=== PATIENT | male | born 1940 | race African-American/Black ===

== ENCOUNTER 2016-03-26 03:25 | Inpatient (IN) | payer MEDICARE ==
[~2016-03-26] VITALS: Ht 179.1 cm; Wt 72.6 kg
[~2016-03-26 03:25] MED LIST: ABILIFY2 MG PO; DEPAKOTE ER500 MG PO; FLORANEX / LACT1 TAB PO; LEXAPRO10 MG PO; LEXAPRO20 MG PO; MILK OF MAGNESI30 ML PO; MIRALAX17 GM PO; NEOSPORIN OINTM15 GM TP; NORVASC5 MG PO; OXYBUTYNIN CHLOR5 MG PO; PROTONIX40 MG PO; TRIPLE ANTIBI28.4 GM TP; VITAMIN B-121000 MC3 PO; VITAMIN D2000 UNIT PO; VITAMIN D5000 UNIT PO; VITAMIN D50000 UNIT PO; [UNRECOGNIZED DRUG - CODE] IM
[2016-03-26 07:06] LABS: BASOPHILS 0.4 % (0.0-2.0); EOSINOPHILS 0.2 % (0-7); HEMOGLOBIN 18.7 g/dL (13.5-17.5); IMMATURE GRANULOCYTES 0.3 % (0-5); LYMPHOCYTES 11.9 % (15-50); MCH 33.3 pg (26.0-34.0); MCV 97.9 fL (80.0-100.0); MEAN PLATELET VOLUME 10.6 fL (7.4-10.4); MONOCYTES 9.7 % (2-11); NEUTROPHILS 77.5 % (40-80); RBC 5.62 10x6/uL (4.20-6.10); RDW 14.8 % (11.5-14.5); WBC 14.1 10x3/uL (4.8-10.8)
[2016-03-26 07:43] LABS: PLATELET COUNT 188 10x3/uL (130-400)
[2016-03-26 08:01] LABS: ANION GAP 21.7 mmol/L (8-16); BILIRUBIN - TOTAL 0.79 mg/dL (0.2-1.3); CALCIUM 10.2 mg/dL (8.5-10.1); CARBON DIOXIDE 22.8 mmol/L (21.0-32.0); CREATININE - SERUM 1.7 mg/dL (0.6-1.3); POTASSIUM - SERUM 4.5 mmol/L (3.5-5.1); PROTEIN - SERUM 9.1 g/dL (6.4-8.2)
[2016-03-26 11:48] LABS: APPEARANCE HAZY (CLEAR); BILIRUBIN NEGATIVE (NEGATIVE); COLOR DK YELLOW (YELLOW); GLUCOSE NEGATIVE (NEGATIVE); KETONE MODERATE mg/dL (NEGATIVE); LEUKOCYTE ESTERASE NEGATIVE (NEGATIVE); NITRITE NEGATIVE (NEGATIVE); PROTEIN 1+ mg/dL (NEGATIVE); RED CELLS - URINE 0-5 /hpf (0-5); SPECIFIC GRAVITY 1.015 (1.005-1.020); UROBILINOGEN NORMAL (NORMAL); WHITE CELLS - URINE OCC /hpf (0-5)
[2016-03-26 11:49] LABS: BACTERIA MODERATE /hpf (NONE SEEN); EPITHELIAL CELLS OCC /hpf (0-5); HYALINE CAST 0-5 /lpf (NONE SEEN); MUCUS <1+ /lpf (NONE SEEN)
--- NOTE | 2016-03-26 14:34 | NUR ---
RECEIVED TO ROOM 2215 FROM ER VIA . ORIENTED TO ROOM AND CALL LIGHT SYSTEM. CALL LIGHT IN REACH. WILL CONTINUE WITH PLAN OF CARE.
[2016-03-26] MEDS ORDERED: CARAFATE1 G PO (14:39)
[2016-03-26 14:42] VITALS: BP 147/105; BMI 22.6
--- NOTE | 2016-03-26 16:27 | NUR ---
IV OF D5 1/2NS INITIATED @ 200 CC/HR. LEVAQUIN IVPB AND PROTONIX SIVP. CALL LIGHT IN REACH.
[2016-03-26 16:37] VITALS: BP 147/05
--- NOTE | 2016-03-26 16:40 | NUR ---
PT LYING IN BED. RATES PAIN 5 ON SCALE OF 0-10. ADMINISTERED DILAUDID SIVP. NO FURTHER NEEDS NOTED. BED IN LOWEST POSITION. SRU X2. PHONE AND CALL LIGHT WITHIN REACH.
[2016-03-26 16:50] LABS: CKMB 2.8 U/L (0.0-3.6); CREATINE KINASE 300 UL (21-232)
[2016-03-26 16:51] LABS: TROPONIN-I 0.071 ng/mL (0.000-0.060)
--- NOTE | 2016-03-26 18:23 | NUR ---
NO CHANGES IN INITIAL ASSESSMENT. CALL LIGHT IN REACH. WILL CONTINUE WITH PLAN OF CARE.
[2016-03-26 21:00] VITALS: BP 131/75
[2016-03-26 21:31] LABS: CKMB 2.4 U/L (0.0-3.6); CREATINE KINASE 329 UL (21-232)
[2016-03-26 21:44] LABS: TROPONIN-I 0.067 ng/mL (0.000-0.060)
[2016-03-27 01:00] VITALS: BP 189/104
--- NOTE | 2016-03-27 03:01 | NUR ---
RESTING AT THIS TIME RESPIRATIONS WITH EASE AND UNLABORED.
[2016-03-27 03:43] LABS: CKMB 2.4 U/L (0.0-3.6); CREATINE KINASE 326 UL (21-232)
[2016-03-27 03:49] LABS: TROPONIN-I 0.079 ng/mL (0.000-0.060)
[2016-03-27 04:53] VITALS: BP 184/93
--- NOTE | 2016-03-27 07:30 | NUR ---
PT LYING ON LEFT SIDE WITH EYES CLOSED AND RESPIRATIONS EVEN AND NON LABORED. BED ALARM ON AND IV TO LEFT HAND PATENT WITH NO S/S OF INFILTRATION PRESENT. CALL LIGHT IN REACH AND DOOR OPEN. WILL CONTINUE WITH PLAN OF CARE.
[2016-03-27 08:08] VITALS: BP 170/87
--- NOTE | 2016-03-27 08:20 | NUR ---
SCHEDULED PROTONIX ADMINISTERED AT THIS TIME. PT ASSISTED TO STANDING POSITION AT BEDSIDE SO THAT HE COULD USE THE URINAL. PT DENIES PAIN AND IS VERY UNSTEADY AND WEAK IN HIS GAIT. PT UNABLE TO EAT BREAKFAST HE DOES NOT HAVE AN APPETITE. DRANK TWO SWALLOWS OF MILK WITH MINIMAL DIFFICULTY. ASSISTED BACK TO BED. PT SELF POSITIONS FOR COMFORT. BED ALARM ON AND SRX2 WITH BED IN LOWEST POSITION AND LOCKED. CALL LIGHT IN REACH AND DOOR OPEN. WILL CONTINUE WITH PLAN OF CARE.
--- NOTE | 2016-03-27 10:17 | NUR ---
Patient Name: ADRIAN WAGGONER Admission Status: ER Accout number: [id number] Admission Date: 03-26-2016 : 1940 Admission Diagnosis: Attending: CARLEEN Current LOS: 1 Anticipated DC Date: Planned Disposition: Primary Insurance: [employer] ADV Discharge Planning Comments: CM MET WITH PATIENT AND HE WANTS HOSPICE AT THIS TIME. HOSPICE CONSULT ORDERED. Buoy Tender: Soraya Cannon
--- NOTE | 2016-03-27 10:17 | NUR ---
Patient Name: ADRIAN WAGGONER Admission Status: ER Accout number: [id number] Admission Date: 03-26-2016 : 1940 Admission Diagnosis: Attending: CARLEEN Current LOS: 1 Anticipated DC Date: Planned Disposition: Primary Insurance: [employer] ADV Discharge Planning Comments: CM MET WITH PATIENT AND HE WANTS HOSPICE AT THIS TIME. HOSPICE CONSULT ORDERED. Alum Mixer: Soraya Cannon
[2016-03-27 10:25] VITALS: Ht 179.1 cm; Wt 72.6 kg
[2016-03-27 12:19] VITALS: BP 157/77
[2016-03-27 12:29] LABS: BASOPHILS 0.3 % (0.0-2.0); EOSINOPHILS 0.4 % (0-7); HEMATOCRIT 49.8 % (42.0-54.0); HEMOGLOBIN 16.6 g/dL (13.5-17.5); IMMATURE GRANULOCYTES 0.3 % (0-5); MCH 33.2 pg (26.0-34.0); MCHC 33.3 g/dL (31.0-37.0); MCV 99.6 fL (80.0-100.0); MEAN PLATELET VOLUME 11.3 fL (7.4-10.4); MONOCYTES 9.4 % (2-11); NEUTROPHILS 76.6 % (40-80); PLATELET COUNT 168 10x3/uL (130-400); RDW 15.3 % (11.5-14.5); WBC 13.1 10x3/uL (4.8-10.8)
--- NOTE | 2016-03-27 12:45 | NUR ---
SCHEDULED ANTIBIOTIC ADMINISTERED AT THIS TIME. PT REMAINS ASLEEP WITH RESPIRATIONS EVEN AND NON LABRORED. CALL LIGHT IN REACH, WILL CONTINUE WITH PLAN OF CARE.
[2016-03-27 13:31] LABS: ALBUMIN 3.3 g/dL (3.4-5.0); ANION GAP 11.6 mmol/L (8-16); BILIRUBIN - TOTAL 0.58 mg/dL (0.2-1.3); CARBON DIOXIDE 28.2 mmol/L (21.0-32.0); CREATININE - SERUM 1.5 mg/dL (0.6-1.3); POTASSIUM - SERUM 3.8 mmol/L (3.5-5.1)
--- NOTE | 2016-03-27 15:00 | NUR ---
MEPILEX HEART DRESSING APPLIED TO PT'S COCCYX AT HIS REQUEST FOR ADDED PADDING AND TO DECREASE THE CHANCE OF BREAKDOWN. PT REFUSES TO EAT. SELF POSITIONS FOR COMFORT.
[2016-03-27 15:45] VITALS: BP 160/90
--- NOTE | 2016-03-27 19:00 | NUR ---
PATIENT SLEEPING ON RIGHT SIDE. HOB 20 DEGREES. AROUSES TO VOICE BUT IS LETHARIC WITH A FLAT AFFECT. RR EVEN AND UNLABORED. STATES PAIN IS AN 8/10. IV TO LEFT HAND PATENT WITH NO REDNESS OR SWELLING. MEPILEX TO COCCYX CDI. PATIENT STATES THAT THERE IS NOT AN OPEN SORE BUT HE REQUESTED THE DRESSING TO PREVENT ONE. BA ON. SRX2. BED LOW. CALL LIGHT WITHIN REACH.
[2016-03-27 21:00] VITALS: BP 160/93
--- NOTE | 2016-03-27 22:50 | NUR ---
DILAUDID GIVEN FOR PAIN AND AMBIEN GIVEN FOR SLEEP PER ORDER. WILL REASSESS.
[2016-03-28 01:00] VITALS: BP 142/95
--- NOTE | 2016-03-28 02:00 | NUR ---
PATIENT SLEEPING WITH NO DISTRESS NOTED. CALL LIGHT WITHIN REACH.
[2016-03-28 04:24] VITALS: BP 158/87
--- NOTE | 2016-03-28 05:30 | NUR ---
PATIENT SITTING UP ON SIDE OF BED DRINKING WATER. STATES THAT HE "HAD A GOOD NIGHTS SLEEP."
--- NOTE | 2016-03-28 07:31 | NUR ---
DR CRESCENCIO GRIFFITH AT THIS TIME. NOTIFIFED HIM OF PT'S BLOOD PRESSURE 162/102. NEW ORDERS GIVEN FOR AMLODIPINE. SCHEDULED MEDICATIONS ADMININSTERED AT THIS TIME WELL PRN DILAUDID FOR PAIN 8/10 IN LEFT HIP. PT ASSISTED BACK TO BED IN A LYING POSITION. PT SELF POSITIONS FOR COMFORT. ASSESSMENT PERFORMED PER FLOWSHEET. IV TO LEFT HAND PATENT WITH NO S/S OF INFILTRATION PRESENT. CALL LIGHT IN REACH, BED ALARM ON. WILL CONTINUE WITH PLAN OF CARE. DOOR OPEN, SRX2 AND BED IN LOWEST POSITION AND LOCKED.
[2016-03-28 08:22] VITALS: BP 163/102
--- NOTE | 2016-03-28 10:15 | NUR ---
RESTING AT THIS TIME WITH NO S/S OF DISTRESS PRESENT. EYES CLOSED AND RESPIRATIONS EVEN AND NON LABORED. CALL LIGHT IN REACH, DOOR OPEN. WILL CONTINUE WITH PLAN OF CARE.
[2016-03-28 11:43] LABS: BASOPHILS 0.5 % (0.0-2.0); EOSINOPHILS 0.8 % (0-7); HEMATOCRIT 46.7 % (42.0-54.0); HEMOGLOBIN 15.6 g/dL (13.5-17.5); IMMATURE GRANULOCYTES 0.4 % (0-5); LYMPHOCYTES 14.6 % (15-50); MCH 33.1 pg (26.0-34.0); MCHC 33.4 g/dL (31.0-37.0); MCV 99.2 fL (80.0-100.0); MEAN PLATELET VOLUME 11.1 fL (7.4-10.4); MONOCYTES 9.8 % (2-11); NEUTROPHILS 73.9 % (40-80); PLATELET COUNT 136 10x3/uL (130-400); RBC 4.71 10x6/uL (4.20-6.10); RDW 14.4 % (11.5-14.5)
[2016-03-28 12:02] LABS: ALBUMIN 3.2 g/dL (3.4-5.0); BILIRUBIN - TOTAL 0.68 mg/dL (0.2-1.3); CALCIUM 8.9 mg/dL (8.5-10.1); CREATININE - SERUM 1.4 mg/dL (0.6-1.3); POTASSIUM - SERUM 3.7 mmol/L (3.5-5.1); PROTEIN - SERUM 7.2 g/dL (6.4-8.2)
[2016-03-28 12:07] LABS: ANION GAP 12.7 mmol/L (8-16)
[2016-03-28 12:31] VITALS: BP 170/107
--- NOTE | 2016-03-28 13:00 | NUR ---
ASSISTED PT TO STAND SO HE COULD VOID AT THIS TIME. PT VOIDED 100 ML OF TEA COLORED URINE AT THIS TIME. ASSISTED BACK TO BED. BED ALARM ON AND CALL LIGHT IN REACH.
--- NOTE | 2016-03-28 16:12 | NUR ---
LYING ON RIGHT SIDE AT THIS TIME. EYES CLOSED WITH RESPIRATIONS EVEN AND NON LABORED. CALL LIGHT IN REACH, WILL CONTINUE WITH PLAN OF CARE.
--- NOTE | 2016-03-28 16:53 | NUR ---
Patient Name: ADRIAN WAGGONER Admission Status: ER Accout number: [id number] Admission Date: 03-26-2016 : 1940 Admission Diagnosis:PAIN, UNSPECIFIED Attending: CARLEEN Current LOS: 2 Anticipated DC Date: Planned Disposition: Primary Insurance: [employer] ADV Discharge Planning Comments: CM MET WITH PATIENT REGARDING D/C NEEDS AND PLANS. PATIENT WAS NOT APPROPRIATE FOR HOSPICE. PATIENT LIVES ALONE HIS EX- BROUGHT HIM IN TO ER. PATIENT LIVES IN A HIGHRISE WITH AN ELEVATOR. PATIENT STATES HE IS INDEPENDENT WITH HIS CARE AND HAS A CANE. PATIENTS PCP IS DR. PRATHER AND PHARMACY IS [facility]. PATIENT HAD [facility] IN THE PAST. PATIENT WANTS TO GO TO THE [facility]. A ANTWON HAS BEEN SENT AND REFERRAL WILL BE MADE IN AM. CM WILL CONTINUE TO FOLLOW PATIENT WITH D/C NEEDS AND PLANS. PCP DR. [facility]- [phone] LILIANA VELEZ (EX ) [phone] Sports Information Director: Soraya Cannon Is the patient Alert and Oriented? Yes 0 * How many steps to enter\exit or inside your home? ELEVATOR 0 * PCP DR. PRATHER 0 * Pharmacy [facility] 0 * Preadmission Environment Home Alone 0 * ADLs Independent 0 * List name and contact numbers for known caregivers / representatives who currently or will assist patient after discharge: LILIANA ([phone]) EX 0 * Community resources currently utilized None 0 * Additional services required to return to the preadmission environment? Yes 0 * Can the patient safely return to the preadmission environment? No 0 * Has this patient been hospitalized within the prior 30 days at any hospital? No 0 Grand Total: 0
--- NOTE | 2016-03-28 19:00 | NUR ---
PATIENT RESTING IN BED WITH EYES CLOSED. AROUSES TO VOICE. RR EVEN AND UNLABORED. 0 S/S OF DISTRESS. STATES PAIN IS A 3/10. IV TO RIGHT HAND PATENT WITH NO REDNESS OR SWELLING. B/A ON. SRX2. BED LOW. CALL LIGHT WITHIN REACH.
[2016-03-28 20:00] VITALS: BP 127/69
--- NOTE | 2016-03-28 20:02 | NUR ---
20G IV SITED TO PT'S RIGHT HAND X2 ATTEMPTS. 22G IV TO LEFT HAND D/C WITH CATH TIP INTACT D/T LEAKING AROUND INSERTION SITE.
--- NOTE | 2016-03-28 21:30 | NUR ---
DILAUDID GIVEN FOR PAIN AND AMBIEN GIVEN FOR SLEEP.
[2016-03-29] VITALS: BP 149/77
--- NOTE | 2016-03-29 01:35 | NUR ---
DILAUDID GIVEN FOR PAIN.
[2016-03-29 04:00] VITALS: BP 147/84
--- NOTE | 2016-03-29 07:45 | NUR ---
NON-SKID SOCKS PLACED ON PATIENT. FALL BAND ALREADY ON AND YELLOW STAR IS ALREADY ON DOOR.
[2016-03-29 08:19] VITALS: BP 156/92
--- NOTE | 2016-03-29 09:45 | NUR ---
ASSESSMENT COMPLETED. DENIES NEEDS AT THIS TIME. CALL LIGHT IN REACH. WILL CONTINUE WITH PLAN OF CARE.
--- NOTE | 2016-03-29 10:16 | NUR ---
AM MEDS ADMINISTERED AND SCDs APPLIED TO BLE.
--- NOTE | 2016-03-29 10:21 | NUR ---
IV TUBING CHANGED AND PASSWORD OBTAINED.
--- NOTE | 2016-03-29 11:50 | NUR ---
DILAUDID 2 MG SIVP PER C/O LEFT HIP PAIN OF 10/. BED ALARM ON. CALL LIGHT IN REACH
[2016-03-29 12:42] VITALS: BP 151/91
--- NOTE | 2016-03-29 12:42 | NUR ---
NUTRITION MONITORING & EVAL CHART REVIEWED, PT VISIT. TOLERATING REG DIET BUT PO INTAKE POOR AT THIS TIME. WILL CONTINUE TO PROVIDE DIET, MONITOR PT PROGRESS. RD FOLLOWING
--- NOTE | 2016-03-29 13:05 | NUR ---
NO NEEDS VOICED AT THIS TIME. CALL LIGHT IN REACH. BED ALARM ON.
--- NOTE | 2016-03-29 14:21 | NUR ---
LEVAQUIN 500 MG IVPB PER ORDER. CALL LIGHT IN REACH.
[2016-03-29 16:03] VITALS: BP 155/87
--- NOTE | 2016-03-29 16:44 | NUR ---
RESTING WITH EYES CLOSED. RESP EVEN AND UNLABORED. CALL LIGHT IN REACH. BED ALARM ON.
--- NOTE | 2016-03-29 18:15 | NUR ---
NO CHANGES IN INITIAL ASSESSMENT. BED ALARM ON. SCDs TO BLE. CALL LIGHT IN REACH. WILL CONTINUE WITH PLAN OF CARE.
--- NOTE | 2016-03-29 19:05 | NUR ---
OUTPUT WAS ONLY 125 CC FOR THE SHIFT. NOTIFIED DR. PRATHER. STATES HE WILL PUT IN NEW ORDERS.
[2016-03-29 20:00] VITALS: BP 158/79
--- NOTE | 2016-03-29 20:00 | NUR ---
ASSESSMENT PER FLOWSHEET. IV PATENT RT.ARM OF D51/2NS AT 50CC'S/HR. BED ALARM ON SCD'S OFF AT THIS TIME.SR UP X2 CALL LIGHT WITHIN REACH BED ALARM BED ON.
--- NOTE | 2016-03-29 21:00 | NUR ---
MEDS GIVEN PER MAR.
[2016-03-30] VITALS (7 sets, daily range): BP systolic 128–160; BP diastolic 63–78
--- NOTE | 2016-03-30 | NUR ---
UP WITH HELP AND USE OF WALKER FOR BM. PASSED GAS NO STOOL NOTED. RICHMOND CATHETER INSERTED 16FR ORDERED.
--- NOTE | 2016-03-30 03:00 | NUR ---
UP TO BR WITH HELP NO STOOL NOTED. PASSING GAS ONLY.
--- NOTE | 2016-03-30 05:56 | NUR ---
NO CHANGES IN ASSESSMENT.
[2016-03-30 11:49] LABS: BASOPHILS 0.2 % (0.0-2.0); EOSINOPHILS 1.5 % (0-7); HEMATOCRIT 40.6 % (42.0-54.0); HEMOGLOBIN 13.5 g/dL (13.5-17.5); IMMATURE GRANULOCYTES 0.5 % (0-5); MCH 32.2 pg (26.0-34.0); MCHC 33.3 g/dL (31.0-37.0); MCV 96.9 fL (80.0-100.0); MEAN PLATELET VOLUME 10.7 fL (7.4-10.4); MONOCYTES 9.4 % (2-11); NEUTROPHILS 68.4 % (40-80); RBC 4.19 10x6/uL (4.20-6.10); RDW 13.9 % (11.5-14.5); WBC 8.8 10x3/uL (4.8-10.8)
[2016-03-30 11:50] LABS: PLATELET COUNT 101 10x3/uL (130-400)
[2016-03-30 11:59] LABS: ALBUMIN 2.6 g/dL (3.4-5.0); ANION GAP 7.8 mmol/L (8-16); BILIRUBIN - TOTAL 0.57 mg/dL (0.2-1.3); CALCIUM 8.5 mg/dL (8.5-10.1); CARBON DIOXIDE 30.1 mmol/L (21.0-32.0); CREATININE - SERUM 1.4 mg/dL (0.6-1.3); PROTEIN - SERUM 5.9 g/dL (6.4-8.2)
[2016-03-30 12:15] LABS: POTASSIUM - SERUM 2.9 mmol/L (3.5-5.1)
--- NOTE | 2016-03-30 20:00 | NUR ---
ASSESSMENT WI FLOWSHEET. IV PATENT RT HAND OF D51/2NS INFUSING AT 50CC'S/HR RICHMOND TO BS DRAINAGE WITH MAICO COLORED URINE. C/O BEING HUNGRY FOOD TRAY GIVEN TO PATIENT. #3 K+ RIDER HUNG ORDERED PER ELECTROLYTE PROTOCAL.
--- NOTE | 2016-03-30 22:00 | NUR ---
MEDS GIVEN PER MAR. #4 K+ RIDER HUNG PER Joel MONTOYA.
--- NOTE | 2016-03-30 22:17 | NUR ---
C/O BACK PAIN RATES PAIN LEVEL #6 DILAUDID IVP GIVEN FOR PAIN RELIEF.
--- NOTE | 2016-03-31 | NUR ---
EYES CLOSED RESPIRATIONS WITH EASE AND UNLABORED.
[2016-03-31 04:00] VITALS: BP 132/60
--- NOTE | 2016-03-31 06:05 | NUR ---
UP IN ROOM AT SINK ORAL CARE AND AM CARE SELF CARE DONE.
[2016-03-31 08:22] VITALS: BP 120/68
[2016-03-31 12:23] VITALS: BP 145/67
--- NOTE | 2016-03-31 15:05 | NUR ---
PATIENT REPORTS TENDERNESS AT IV SITE. D/C IV WITH CATH INTACT. STARTED IV TO RIGHT AC 20G X'S 2 ATTEMPTS.
[2016-03-31 16:38] VITALS: BP 122/59
--- NOTE | 2016-03-31 20:00 | NUR ---
ASSESSMENT PER MARTHA. IV PATENT RT ARM OF D51/2NS AT 50CC'S/HR SITE CLEAR. RICHMOND TO BS DRAINAGE WITH YELLOW URINE. SR UP X2 CALL LIGHT ON.
[2016-03-31 21:00] VITALS: BP 122/71
--- NOTE | 2016-03-31 21:30 | NUR ---
MEDS GIVEN PER MAY.AMBIEN 5 MG PO GIVEN FOR SLEEP.
--- NOTE | 2016-04-01 | NUR ---
EYES CLOSED RESPIRATIONS WITH EASEA ND UNLABORED.
[2016-04-01 02:00] VITALS: BP 121/66
[2016-04-01 06:00] VITALS: BP 130/68
--- NOTE | 2016-04-01 06:59 | NUR ---
NO CHANGES IN ASSESSMENT.
--- NOTE | 2016-04-01 08:08 | NUR ---
AWAKE AND ALERT. ORIENTED X3. C/O LEFT HIP PAIN THIS AM. NOT NEW. WILL MONITOR. LUNGS ARE CLEAR BILATERALLY, NO COUGH NOTED. SKIN IS INTACT WITHOUT REDNESS. IV TO RIGHT FOREARM PATENT WITHOUT REDNESS AT INSERTION SITE. RICHMOND PATENT WITH CLEAR YELLOW URINE. DENIES NEEDS. ASSISTED TO SIT UP ON SIDE OF BED FOR BREAKFAST.
[2016-04-01 08:30] VITALS: BP 147/66
--- NOTE | 2016-04-01 10:30 | NUR ---
REQUESTED AND GIVEN ONE HYDROCODONE PO FOR C/O BACK AND ABDOMENAL PAIN LEVEL 9. WILL MONITOR.
[2016-04-01 12:14] VITALS: BP 142/57
--- NOTE | 2016-04-01 12:30 | NUR ---
LUNCH SERVED IN ROOM. FEEDS SELF. NO C/O AT THIS TIME.
--- NOTE | 2016-04-01 13:30 | NUR ---
RESTING QUIETLY IN BED. DENIES NEEDS. REFUSED LUNCH TRAY. STATED HE ATE ALL HE WANTED.
--- NOTE | 2016-04-01 15:05 | NUR ---
OT NOTE: ATTEMPTED OT EVAL ON THIS DATE, HOWEVER, PT REFUSED. PT REPORTED THAT HE NEEDED TO REST AND COULD NOT GET UP AT THIS TIME. WILL RE ATTEMPT TOMORROW. THANK YOU FOR REFERAL, NOHEMI NEWTON, OTR/L
--- NOTE | 2016-04-01 16:21 | NUR ---
RESTING QUIETLY WITH EYES CLOSED. NO NEEDS NOTED.
[2016-04-01 16:54] VITALS: BP 136/75
--- NOTE | 2016-04-01 19:40 | NUR ---
RECIEVED SHIFT REPORT. PT IS LYING IN BED. ALERT AND ORIENTED AND ABLE TO VERBALIZE NEEDS. IV IS PATENT AND FLUIDS ARE RUNNING PER ORDER. PT IS AMBULATORY BUT WAS INSTUCTED TO CALL FOR ANY ASSISTANCE NEEDED. RICHMOND IS DRAINING URINE BY GRAVITY. PT STATES PAIN IS 9/10. NO NEEDS ARE VERBALIZED AT THIS TIME. WILL CONTINUE TO MONITOR. SIDE RAILS ARE UP X 2. BED IS IN LOWEST POSITION. CALL LIGHT IS WITHIN REACH.
--- NOTE | 2016-04-01 19:41 | NUR ---
ATE ABOUT HALF OF SUPPER TRAY. REQUESTED AND GIVEN DULCOLAX SUPPOSITORY. WILL MONITOR.
[2016-04-01 21:00] VITALS: BP 155/67
--- NOTE | 2016-04-01 21:39 | NUR ---
SHIFT ASSESSMENT COMPLETED. PT C/O PAIN 11/24. ADMINISTERED PRESCRIBED PRN DILAUDID PER ORDER. DENIES FURTHER NEEDS. WILL MONITOR. SIDE RAILS X 2. BED LOW. CALL LIGHT IN REACH.
[2016-04-02 00:21] VITALS: BP 138/70
[2016-04-02 05:00] VITALS: BP 116/63
--- NOTE | 2016-04-02 08:19 | NUR ---
AWAKE AND ALERT. ORIENTED X3. NO C/O AT THIS TIME. LUNGS ARE CLEAR BILATERALLY, NO COUGH NOTED. SKIN IS INTACT WITHOUT REDNESS. IV TO RIGHT AC IS PATENT WITHOUT REDNESS AT INSERTION SITE. SCD'S OFF AT THIS TIME. DENIES NEEDS. RICHMOND PATENT WITH CLEAR YELLOW URINE.
[2016-04-02 08:29] VITALS: BP 139/76
--- NOTE | 2016-04-02 09:45 | NUR ---
REQUESTED AND GIVEN 2MG DILAUDID SLOW IVP FOR C/O BACK AND ABDOMINAL PAIN LEVEL 7. WILL MONITOR.
--- NOTE | 2016-04-02 11:10 | NUR ---
C/O NAUSEA. REQUESTED AND GIVEN 8MG ZOFRAN SLOW IVP FOR SAME. WILL MONITOR.
--- NOTE | 2016-04-02 11:51 | NUR ---
OT NOTE: ATTEMPTED EVAL FOR SECOND TIME THIS AM. PT CONTINUES TO REFUSE. PT REPORTED NO PAIN, JUST REPORTED THAT HE COULD NOT GET UP NOW.."TOO WEAK". WILL ATTEMPT AGAIN LATER. THANK YOU, NOHEMI NEWTON, OTR/L
--- NOTE | 2016-04-02 12:28 | NUR ---
NUTRITION MONITORING & EVAL CHART REVIEWED, PT VISIT. TOLERATING REG DIET, 50% INTAKE RECENT MEALS. RD FOLLOWING
--- NOTE | 2016-04-02 12:30 | NUR ---
SAT UP ON SIDE OF BED AND ATE LUNCH. FEEDS SELF.
[2016-04-02 13:36] VITALS: BP 149/65
[2016-04-02 14:59] VITALS: BP 121/62
--- NOTE | 2016-04-02 19:25 | NUR ---
Patient received in bed resting, kidd catheter in place draining clear dark yellow urine, PIV #20 in right AC infusing D5 1/2 NS @50ml/hr, no signs of infection or infiltration at PIV site. Denies any back or hip pain at this time. Alert and oriented x 4.
[2016-04-02 22:00] VITALS: BP 156/68
--- NOTE | 2016-04-03 00:20 | NUR ---
Sleeping, respirations easy and regular. Has refused to wear SCDs this evening. SCDs off and at sink. IV infusing. Gonzalez catheter draining well.
--- NOTE | 2016-04-03 06:22 | NUR ---
Continues to sleep, no complaints voiced of pain or discomfort.
--- NOTE | 2016-04-03 07:30 | NUR ---
REPORT RECEIVED FROM MARKETING OPERATIONS CONSULTANT NURSE. CALL LIGHT IN REACH.
[2016-04-03 08:24] VITALS: BP 118/62
--- NOTE | 2016-04-03 08:40 | NUR ---
ASSESSMENT COMPLETED. [facility]. CALL LIGHT IN REACH. WILL CONTINUE WITH PLAN OF CARE.
--- NOTE | 2016-04-03 10:00 | NUR ---
NO NEEDS VOICED AT THIS TIME. CALL LIGHT IN REACH.
--- NOTE | 2016-04-03 12:40 | NUR ---
STATES HE IS GOING TO TRY EAT LUNCH TODAY.
[2016-04-03 13:07] VITALS: BP 118/61
--- NOTE | 2016-04-03 14:43 | NUR ---
PATIENT RECIEVED DILAUDID IVP SLOWLY OVER 3 MINUTES. IV INTACT. NO SIGNS OF DISTRESS. CALL LIGHT WITHIN REACH.
--- NOTE | 2016-04-03 15:46 | NUR ---
REPORT GIVEN TO CANDY HAWKINS.
[2016-04-03 15:50] VITALS: BP 121/58
--- NOTE | 2016-04-03 15:50 | NUR ---
PATIENT REPORT RECIEVED AT THIS TIME. IV INTACT. NO COMPLAINTS. CALL LIGHT WITHIN REACH.
--- NOTE | 2016-04-03 20:00 | NUR ---
ASSESSMENT PER FLOWSHEET. IV PATENT LEFT AC OF D51/2NS AT 50CC'S/HR SITE CLEAR. PT RESTING QUIETLY DENIES NEEDS. RICHMOND TO BS DRAINAGE WITH YELLOW URINE. PT REFUSES SCD'S AT THIS TIME.
--- NOTE | 2016-04-03 21:51 | NUR ---
PT REQUESTING SLEEPING PILL. AMBIEN 5 MG PO GIVEN FOR SLEEP.
[2016-04-03 22:11] VITALS: BP 146/70
--- NOTE | 2016-04-03 23:49 | NUR ---
EYES CLOSED RESPIRATIONS WITH EASE AND UNLABORED.
--- NOTE | 2016-04-04 01:49 | NUR ---
EYES CLOSED RESPIRATIONS WITH EASE AND UNLABORED. REFUSES TO WEAR SCD'S.
--- NOTE | 2016-04-04 04:03 | NUR ---
EYES CLOSED RESPIRATIONS WITH EASE AND UNLABORED.
--- NOTE | 2016-04-04 07:15 | NUR ---
REPORT RECIEVED FROM STOCKING INSPECTOR NURSE. CALL LIGHT IN REACH.
[2016-04-04 08:19] VITALS: BP 124/73
--- NOTE | 2016-04-04 08:50 | NUR ---
ASSESSMENT COMPLETED. IV TO RIGHT ARM LEAKING. DC'D WITH TIP INTACT. REFUSES SCDs. BED ALARM ON. CALL LIGHT IN REACH. WILL CONTINUE WITH PLAN OF CARE.
--- NOTE | 2016-04-04 10:32 | NUR ---
IV RESITED TO RIGHT FA WITH 22 GA X1 STICK DILAUDID 2 MG SIVP PER C/O PAIN OF 8 AND NORVASC PO. CALL LIGHT IN REACH.
[2016-04-04 11:53] VITALS: BP 134/65
--- NOTE | 2016-04-04 12:05 | NUR ---
NO NEEDS VOICED AT THIS TIME. CALL LIGHT IN REACH.
--- NOTE | 2016-04-04 13:09 | NUR ---
PATIENT UP AMBULATING IN HALLWAY WITH PT. NO PROBLEMS AT THIS TIME. IV INTACT.
[2016-04-04] MEDS ORDERED: AMBIEN5 MG PO (13:16)
[2016-04-04] MEDS ORDERED: NORVASC10 MG PO (13:16)
[2016-04-04] MEDS ORDERED: ZOFRAN ODT4 MG/UDTAB PO (13:16)
--- NOTE | 2016-04-04 14:42 | NUR ---
REPORT CALLED TO JENNI SONG, AT THE [facility]. DC'D TO [facility] WITH [facility].
--- NOTE | 2016-04-04 14:44 | NUR ---
CM REASSESSMENT NOTE: PATIENT DISCHARGED BY FACILITY VAN TO A SKILLED BED AT [facility]
== END 2016-04-04 14:42 | DRG 815 ==
LOC: OBSVTIME → D.ER 03:25 → D.OPS 13:03 → OBSVTIME 13:28 → D.ER 13:28 → D.MS 13:28 → EDSTATUS 15:36 → D.MS 20:45
PROVIDERS: Emergency Medicine; ADMIT Legal Medicine
DX: D72.829 Elevated white blood cell count, unspecified (principal); E87.0 Hyperosmolality and hypernatremia; R41.82 Altered mental status, unspecified; D75.1 Secondary polycythemia; F31.9 Bipolar disorder, unspecified; F03.90 Unspecified dementia, unspecified severity, without behavioral disturbance, psychotic disturbance, mood disturbance, and anxiety; K21.9 Gastro-esophageal reflux disease without esophagitis; M19.90 Unspecified osteoarthritis, unspecified site; Z87.891 Personal history of nicotine dependence; R97.20 Elevated prostate specific antigen [PSA]; M16.12 Unilateral primary osteoarthritis, left hip; R53.1 Weakness; E86.0 Dehydration; E87.6 Hypokalemia

== ENCOUNTER 2016-08-29 14:18 | Emergency (ER) | payer MEDICARE ==
[2016-03-27 10:25] VITALS: BMI 22.6
[~2016-08-29 14:18] MED LIST changes: +AMBIEN5 MG PO; +CARAFATE1 G PO; +NORVASC10 MG PO; +ZOFRAN ODT4 MG/UDTAB PO
[2016-08-29 15:23] LABS: BASOPHILS 0.5 % (0-2); EOSINOPHILS 4.9 % (0-7); HEMATOCRIT 37.3 % (42.0-54.0); HEMOGLOBIN 12.6 g/dL (13.5-17.5); IMMATURE GRANULOCYTES 0.4 % (0-5); LYMPHOCYTES 19.9 % (15-50); MCH 31.6 pg (26.0-34.0); MCHC 33.8 g/dL (31.0-37.0); MCV 93.5 fL (80.0-100.0); MEAN PLATELET VOLUME 8.9 fL (7.4-10.4); MONOCYTES 10.4 % (2-11); NEUTROPHILS 63.9 % (40-80); RBC 3.99 10x6/uL (4.20-6.10); RDW 15.2 % (11.5-14.5); WBC 8.2 10x3/uL (4.8-10.8)
[2016-08-29 15:31] LABS: PLATELET COUNT 242 10x3/uL (130-400)
[2016-08-29 15:34] LABS: APPEARANCE CLEAR (CLEAR); BILIRUBIN NEGATIVE (NEGATIVE); COLOR STRAW (YELLOW); GLUCOSE NEGATIVE (NEGATIVE); KETONE NEGATIVE (NEGATIVE); LEUKOCYTE ESTERASE NEGATIVE (NEGATIVE); NITRITE NEGATIVE (NEGATIVE); PROTEIN NEGATIVE (NEGATIVE); UROBILINOGEN NORMAL (NORMAL)
[2016-08-29 15:39] LABS: ALBUMIN 3.7 g/dL (3.4-5.0); ANION GAP 12.4 mmol/L (8-16); BILIRUBIN - TOTAL 0.2 mg/dL (0.2-1.3); CALCIUM 9.1 mg/dL (8.5-10.1); CARBON DIOXIDE 26.8 mmol/L (21.0-32.0); CREATININE - SERUM 1.1 mg/dL (0.6-1.3); POTASSIUM - SERUM 4.2 mmol/L (3.5-5.1); PROTEIN - SERUM 8.2 g/dL (6.4-8.2)
== END 2016-08-29 16:20 | disposition home or self-care (01) ==
LOC: D.ER 14:18
PROVIDERS: Nurse Practitioner Family
DX: E86.0 Dehydration (principal); F17.200 Nicotine dependence, unspecified, uncomplicated

== ENCOUNTER 2018-07-21 23:30 | Inpatient (IN) | payer MEDICARE, MEDICAID ==
[2018-07-22 00:50] VITALS: BP 157/87; BMI 29.0
--- NOTE | 2018-07-22 01:03 | NUR ---
NEW ADMIT TO DOCTOR MATTHEWS ON [facility] FROM [facility] FOR ALTERED MENTAL STATUS AND SEXUALLY INAPPROPRIATE BEHAVIORS. PATIENT WAS GOING IN OTHER FEMALE PATIENTS ROOM AND WAS SEXUALLY INAPPROPRIATE. NURSE STATED PATIENT WAS TRYING TO PROVIDE RAMA CARE ON OTHER FEMALE RESIDENTS. PATIENT HAS A HISTORY OF SEXUALLY INAPPROPRIATE BEHAVIOR. PATIENT TRANSPORTED TO [facility] VIA EMS ON A STRETCHER. UPON ARRIVAL, PATIENT WAS CALM AND COOPERATIVE WITH ADMISSION ASSESSMENTS. PATIENT IS ALERT AND ORIENTED TO PERSON, PLACE, AND TIME. DISORIENTED TO SITUATION. PATIENT STATES HE CAME TO THE HOSPITAL BECAUSE HE HAS BEEN HAVING SOME HEART PROBLEMS. CODE WORD IS SOFT. PATIENT STATES HE IS HIS OWN POA AND SIGNS HIS OWN PAPERWORK. HOWEVER, PATIENTS FACESHEET FROM RESIDENTIAL SHOWS LILIANA VELEZ THE RESPONSIBLE LIBERTARIAN. CALLED RESIDENTIAL TO VERIFY. RESIDENTIAL DID NOT KNOW WHAT RELATIONSHIP LILIANA WAS TO PATIENT AND COULD NOT SAY IF PATIENT IS HIS OWN POA. NURSE FROM RESIDENTIAL STATED THERE IS NO POA PAPERWORK IN HIS CHART. CONSENT TO TREAT OBTAINED FROM PATIENT. CODE STATUS DISCUSSED WITH PATIENT. PATIENT IS A DNR. CODE WORD IS SOFT. PATIENT IS RESTING IN BED WITH EYES OPEN AT THIS TIME. CONTINUE TO MONITOR.
[2018-07-22] MEDS ORDERED: BUSPAR5 MG PO (01:17)
[2018-07-22] MEDS ORDERED: CALCIUM CARBONATE PO (01:20)
[2018-07-22] MEDS ORDERED: EX LAX PO (01:22)
[2018-07-22] MEDS ORDERED: FISH OIL 1,0001 CA1 PO (01:23)
[2018-07-22] MEDS ORDERED: MIRALAX17 GM PO (01:24)
[2018-07-22] MEDS ORDERED: IBUPROFIN PO (01:26)
[2018-07-22] MEDS ORDERED: MELATONIN 3 MG1 TAB PO (01:26)
[2018-07-22] MEDS ORDERED: MILK OF MAGNESI30 ML PO (01:27)
[2018-07-22] MEDS ORDERED: POLY-VI-SOL W/I50 ML PO (01:27)
[2018-07-22] MEDS ORDERED: MUSCLE RUB (01:31)
[2018-07-22] MEDS ORDERED: OMEPRAZOLE PO (01:33)
[2018-07-22] MEDS ORDERED: ARTIFICIAL TEAR15 M4 EACH EYE (01:34)
[2018-07-22] MEDS ORDERED: SIMETHICONE PO (01:36)
[2018-07-22] MEDS ORDERED: TRAZADONE PO (01:37)
[2018-07-22] MEDS ORDERED: ULTRAM50 MG PO (01:37)
[2018-07-22] MEDS ORDERED: ZYPREXA5 MG PO (01:38)
[2018-07-22 07:22] LABS: BASOPHILS 0.5 % (0-2); EOSINOPHILS 3.6 % (0-7); HEMATOCRIT 40.2 % (42.0-54.0); HEMOGLOBIN 13.9 g/dL (13.5-17.5); IMMATURE GRANULOCYTES 0.5 % (0-5); LYMPHOCYTES 30.4 % (15-50); MCH 32.3 pg (26.0-34.0); MCHC 34.6 g/dL (31.0-37.0); MCV 93.3 fL (80.0-100.0); MEAN PLATELET VOLUME 9.2 fL (7.4-10.4); MONOCYTES 12.2 % (2-11); NEUTROPHILS 52.8 % (40-80); PLATELET COUNT 214 10x3/uL (130-400); RBC 4.31 10x6/uL (4.20-6.10); RDW 15.8 % (11.5-14.5); WBC 6.6 10x3/uL (4.8-10.8)
[2018-07-22 07:45] LABS: ALBUMIN 3.2 g/dL (3.4-5.0); ANION GAP 13.2 mmol/L (8-16); BILIRUBIN - TOTAL 0.34 mg/dL (0.2-1.3); CALCIUM 8.3 mg/dL (8.5-10.1); CARBON DIOXIDE 24.6 mmol/L (21.0-32.0); CHOL - HDL RATIO 3.7 ratio (2.3-4.9); CREATININE - SERUM 1.1 mg/dL (0.6-1.3); LDL-HDL RATIO 2.5 ratio (1.5-3.5); POTASSIUM - SERUM 3.8 mmol/L (3.5-5.1); PROTEIN - SERUM 7.2 g/dL (6.4-8.2); THYROID STIMULATING HORMONE 2.11 uIU/mL (0.36-3.74)
[2018-07-22 08:00] VITALS: BP 161/83
--- NOTE | 2018-07-22 10:00 | NUR ---
RECEIVED PATIENT IN DINING ROOM FOR B'FAST, ALERT, CALM, COOPERATIVE, PLEASANT. NO BEHAVIORAL ISSUES NOTED. ENJOYS BEING HELPFUL. CONT POC DIRECTED.
[2018-07-22 10:47] VITALS: BMI 29.0
[2018-07-22 14:48] VITALS: BMI 28.9
[2018-07-22 22:21] VITALS: BP 144/77
--- NOTE | 2018-07-23 02:00 | NUR ---
RECIEVED IN DAYROOM. SOCIALZING WITH PEERS. CALM AND COOPERATIVE WITH CARE AND ASSESSMENT. NO SEXUALLY INAPPRORIATE BEHAVIORS. REDIRECT AND REORIENT NEEDED. RESTING IN BED WITH EYES CLOSED AT THIS TIME. CONTINUE PLAN OF CARE.
[2018-07-23 06:14] LABS: VITAMIN D 25 HYDROXY 29.4 ng/mL (30.0-100.0)
--- NOTE | 2018-07-23 07:20 | NUR ---
REC'D PT IN HALLWAY WITH STAFF AND PEERS. SOCIALIZING WITH PEERS. NO DISTRESS NOTED. RESP EVEN AND NONLABORED. REORIENT AND REDIRECT NEEDED. NO SEXUAL INAPPROPRIATE BEHAVIOR NOTED. WILL CONT TO MONITOR Q 15 MINS FOR SAFETY.
[2018-07-23 09:08] VITALS: BP 125/74
[2018-07-23 13:12] LABS: FOLATE (FOLIC ACID) - SERUM 10.6 ng/mL (>3.0)
--- NOTE | 2018-07-23 14:46 | PSY ---
PATIENT NAME:ADRIAN WAGGONER MEDICAL RECORD: [id number] : 38 LOCATION:[facility] ADMISSION DATE: 07/21/18 ACCOUNT: [id number] PSYCHIATRIC EVALUATION DATE OF EVALUATION: 07/22/18 IDENTIFYING DATA: The patient is 77 years old and he is admitted to the hospital on a voluntary basis. CHIEF COMPLAINT: None. HISTORY OF PRESENT ILLNESS: The patient is known to me from previous clinical contact. He was here in 2013. At that time, he had been brought to the Emergency Room and had attempted to kill himself. He had been living alone. He has a history of depression. He subsequently had been put into a senior living. Since then, he has developed dementia and has become sexually inappropriate. He apparently has been following women around, making some very vulgar and suggestive comments and it has been so disruptive and there is such a high degree of fear that he is going to act on some of these suggestions that they referred him to us for evaluation. He very much minimizes what he is doing, saying that it is nothing bad. He has just been make some jokes, but I do not think he fully remembers what he has done or appreciates how socially inappropriate this is and how frightening it is to women or other patients when he is saying these things. PAST MEDICAL HISTORY: Relatively unremarkable. He has a history of hypertension. PAST PSYCHIATRIC HISTORY: Significant for the one previous hospitalization a few years ago for depression. ALLERGIES: ASPIRIN. FAMILY HISTORY: Noncontributory. SOCIAL HISTORY: The patient is . He lives alone. He is not employed and has no substance abuse issues. MENTAL STATUS EXAMINATION: The patient is awake, alert and oriented to person and place, but not to time or situation. His mood is flat. His affect is appropriate. Thought processes are goal directed. Memory, concentration, and abstraction abilities are moderately impaired. He denies any active intent to harm himself or others as well as psychotic symptoms. ASSETS: Supportive family members. LIABILITIES: Limited insight. DIAGNOSTIC IMPRESSION: AXIS I: Senile dementia of the Alzheimer's type with behavioral disturbances. AXIS II: None. AXIS III: Hypertension. AXIS IV: Moderate. AXIS V: Global assessment of functioning is 35. PLAN: At this time, the patient is admitted to the hospital for a comprehensive medical, psychological, and social evaluation. He will be treated with both mood stabilizing and memory enhancing medications. His long-term prognosis is guarded. TRANSINT:[id number] Voice Confirmation ID: [id number] DOCUMENT ID: [id number] REBECCA MATTHEWS MD at 1446 CC: [id number] DICTATION DATE: 07/22/181713 LENS EDGER: 07/22/18 1742 ADM IN [place] [id number] [place] [address]
--- NOTE | 2018-07-23 16:16 | NUR ---
PT REQUESTED VASOLINE DUE TO RECTAL PAIN AFTER BOWEL MOVEMENTS. NURSE EXPLAINED WE WOULD SPEAK WITH DR. COKER IN REGARDS TO GETTING A CREAM FOR THIS RECTUM. PT VERBALIZED UNDERSTANDING.
--- NOTE | 2018-07-23 16:19 | NUR ---
DR. COKER INQUIRED IF PT WAS CONSTIPATED. PT TAKES MIRALAX 17 GM DAILY IN THE AM. ASKED PT IF THE WAS CONSTIPATED,SIZE OF BM, IF IT WAS HARD TO REMOVE AND IF WOULD DRINK ALOT OF WATER TO HELP. PT DENIED CONSTIPATION AND STATED "IT WAS WHAT HE USED WHERE HE WAS FROM AND IT HELPED IT FEEL BETTER AFTERWARDS." WILL SPEAK WITH DOCTOR.
[2018-07-23 18:33] LABS: APPEARANCE CLEAR (CLEAR); BILIRUBIN NEGATIVE (NEGATIVE); COLOR YELLOW (YELLOW); GLUCOSE NEGATIVE (NEGATIVE); KETONE NEGATIVE (NEGATIVE); NITRITE NEGATIVE (NEGATIVE); PROTEIN NEGATIVE (NEGATIVE); SPECIFIC GRAVITY 1.015 (1.005-1.020); UROBILINOGEN NORMAL (NORMAL)
[2018-07-23 18:34] LABS: BACTERIA FEW /hpf (NONE SEEN); RED CELLS - URINE RARE /hpf (0-5); WHITE CELLS - URINE OCC /hpf (0-5)
--- NOTE | 2018-07-23 18:34 | NUR ---
PT SITTING IN DAY AREA SOCIALZING WITH PEERS. NO ACUTE DISTRESS NOTED. RESP EVEN AND NONLABORED. PT IS VERY PLESANT. REDIRECT NEEDED. MED COMPLIANT. PT VERBALIZED UNDERSTANDING ABOUT DRINKING WATER INSTEAD OF VASOLINE TO USE DURING DEFACATION. WILL CONT TO MONITOR Q 15 MINS FOR SAFETY.
--- NOTE | 2018-07-23 20:00 | NUR ---
RECEIVED IN DAYROOM. SOCIALIZING WITH PEERS. HELPFUL TO OTHER PATIENTS. CALM AND COOPERATIVE WITH CARE AND ASSESSMENT. NO SEXUALLY INAPPROPRIATE BEHAVIORS. REDIRECT AND REORIENT NEEDED. CONTINUES TO SOCIALIZE AT THIS TIME. CONTINUE PLAN OF CARE.
[2018-07-23 20:11] VITALS: BP 147/78
--- NOTE | 2018-07-24 07:30 | NUR ---
REC'D PT SITTING IN A CHAIR WITH A BLANKET OVER SELF. RESP EVEN AND NONLABORED. NO ACUTE DISTRESS NOTED. V/S AND ASSESSMENT DONE. CONFUSION NOTED. PT IS PLESANT AND ENJOYS SOCIALIZING WITH PEERS. NO BEHAVIOR NOTED AT THIS TIME. PT AMBULATES. WILL CONT TO MONITOR Q 15 MINS FOR SAFETY. WILL CONT PLAN OF CARE.
[2018-07-24 09:37] VITALS: BP 127/69
--- NOTE | 2018-07-24 15:55 | PN ---
PATIENT:ADRIAN WAGGONER MEDICAL RECORD: [id number] LOCATION:[facility] ADMISSION DATE: 07/21/18 PROGRESS NOTE DATE OF SERVICE: 07/23/2018 SUBJECTIVE: The patient's case was discussed with staff. He has no new complaint. OBJECTIVE: The patient has not been sexually inappropriate today. He has clear evidence of cognitive impairment, but no significant agitation was present. ASSESSMENT: Senile dementia of the Alzheimer's type with behavioral disturbances. PLAN: Current medicines and therapies have been reviewed. Long-term prognosis is guarded. TRANSINT:[id number] Voice Confirmation ID: [id number] DOCUMENT ID: [id number] REBECCA MATTHEWS MD at 1555 CC: [id number] DICTATION DATE: 07/23/18 1601 COMMUNITY ENGAGEMENT COORDINATOR: 07/23/18 1655 ADM IN [facility] [address] [place] [address]
[2018-07-24 19:08] LABS: RAPID PLASMA REAGIN Reactive (Non Reactive); TREPONEMA PALLIDUM AB Positive (Negative)
[2018-07-24 19:47] VITALS: BP 123/79
--- NOTE | 2018-07-24 21:54 | NUR ---
PATIENT IS COOPERATIVE, CALM, ABLE TO MAKE NEEDS KNOWN, HAVE NOT WITNESSED ANY INAPPROPRIATE SEXUAL BEHAVIOR. COMPLIANT WITH MED. WILL FOLLOW POC
[2018-07-25 08:05] VITALS: BP 127/77
--- NOTE | 2018-07-25 09:37 | NUR ---
RECEIVED PATIENT IN DINING ROOM FOR B'FAST, ALERT, CALM, COOPERATIVE, PLEASANT. MEDS ADMIN PER ORDERS WITH COMPLETE MED COMPLIANCE NOTE COOPERATIVE WITH GROUP AND STAFF REQUESTS. NO INAPPROPRIATE BEHAVIOR NOTED. CONT POC INCLUDING MEDS AND GROUP THERAPY DIRECTED.
--- NOTE | 2018-07-25 11:38 | PN ---
PATIENT:ADRIAN WAGGONER MEDICAL RECORD: [id number] LOCATION:[facility] ADMISSION DATE: 07/21/18 PROGRESS NOTE DATE OF SERVICE: 07/24/2018 SUBJECTIVE: The patient's case was discussed with staff. He has no new complaint. OBJECTIVE: The patient is in good behavioral control. He has limited insight about his condition. He has not been sexually inappropriate today. ASSESSMENT: Senile dementia of the Alzheimer's type with behavioral disturbances. PLAN: Supportive and educational interventions were made. The patient will be started on Aricept at a dose of 5 mg at bedtime. Aricept is being used to treat his underlying cognitive impairment. He will be monitored for clinical changes associated with its use. TRANSINT:[id number] Voice Confirmation ID: [id number] DOCUMENT ID: [id number] REBECCA MATTHEWS MD at 1138 CC: [id number] DICTATION DATE: 07/24/18 1647 COMMUNITY ORGANIZATION DIRECTOR: 07/24/18 2138 ADM IN [place] [id number] [place] [id number]
--- NOTE | 2018-07-25 20:02 | NUR ---
PATIENT IS QUIET, COOPERATIVE, COMPLIANT WITH MEDS, NO INAPPROPRIATE SEXUAL ACTIVITY NOTED. MAKES NEEDS KNOWN, WILL FOLLOW POC
[2018-07-25 20:07] VITALS: BP 135/83
[2018-07-26 07:00] VITALS: BP 135/71
--- NOTE | 2018-07-26 10:16 | NUR ---
RECEIVED PATIENT IN DINING ROOM FOR B'FAST, ALERT, CALM, COOPERATIVE, QUITE PLEASANT. MEDS ADMIN PER ORDERS WITH COMPLETE MED COMPLIANCE NOTED. PARTICIPATES IN GROUP ACTIVITY. COOPERATIVE WITH STAFF. CONT POC INCLUDING MEDS AND GROUP THERAPY.
--- NOTE | 2018-07-26 10:17 | PN ---
PATIENT:ADRIAN WAGGONER MEDICAL RECORD: [id number] LOCATION:[facility] ADMISSION DATE: 07/21/18 PROGRESS NOTE DATE OF SERVICE: 07/25/2018 SUBJECTIVE: The patient's case was discussed with staff. He has no new complaint. OBJECTIVE: The patient has not been sexually inappropriate. He is tolerating his current medicines well. ASSESSMENT: Senile dementia of the Alzheimer's type with behavioral disturbances. PLAN: The patient has had no sexually inappropriate behavior. His long-term prognosis is guarded. TRANSINT:[id number] Voice Confirmation ID: [id number] DOCUMENT ID: [id number] REBECCA MATTHEWS MD at 1017 CC: [id number] DICTATION DATE: 07/25/18 1158 MAINTENANCE MANAGER: 07/25/18 1238 ADM IN [place] [id number] [place] [address]
[2018-07-26 23:07] VITALS: BP 134/64
[2018-07-27 07:00] VITALS: BP 137/74
--- NOTE | 2018-07-27 11:17 | NUR ---
PATIENT RECEIVED IN DAYROOM, SOCIALIZING WITH PEERS. CALM, COOPERATIVE, AND PLEASANT WITH CARE AND ASSESSMENT. MEDICATION COMPLIANT. REDIRECT AND REORIENTED NEEDED. PLAYING TOSS BALL WITH TWO OF PEERS. WILL CONTINUE PLAN OF CARE.
--- NOTE | 2018-07-27 13:45 | PN ---
PATIENT:ADRIAN WAGGONER MEDICAL RECORD: [id number] LOCATION:[facility] ADMISSION DATE: 07/21/18 PROGRESS NOTE DATE OF SERVICE: 07/26/2018 SUBJECTIVE: The patient's case was discussed with staff. He has no new complaint. OBJECTIVE: The patient is in good behavioral control. He has had no inappropriate behaviors. He is tolerating his medications well. ASSESSMENT: Senile dementia of the Alzheimer's type with behavioral disturbances. PLAN: The patient will be given BuSpar at a dose of 15 mg twice daily. BuSpar is being used to treat his underlying anxiety. He will be monitored for changes associated with its use. TRANSINT:[id number] Voice Confirmation ID: [id number] DOCUMENT ID: [id number] REBECCA MATTHEWS MD at 1345 CC: [id number] DICTATION DATE: 07/26/18 1037 POT HOLDER BINDER: 07/26/18 1405 ADM IN [place] [id number] [place] [address]
[2018-07-27] MEDS ORDERED: BUSPAR 15 MG TA15 MG PO (15:50)
[2018-07-27] MEDS ORDERED: DONEPEZIL HCL5 MG PO (15:50)
[2018-07-27] MEDS ORDERED: MELATONIN 3 MG1 TAB PO (15:51)
[2018-07-27 20:07] VITALS: BP 122/69
--- NOTE | 2018-07-27 23:16 | NUR ---
RECEIVED IN PATIENT ROOM. GETTING READY FOR BED. CALM AND COOPERATIVE WITH CARE AND ASSESSMENT. NO SEXUALLY INAPPROPRIATE BEHVIORS. REDIRECT AND REORIENT NEEDED. RESTING IN BED WITH EYES CLOSED AT THIS TIME. CONTINUE PLAN OF CARE.
[2018-07-28 08:00] VITALS: BP 152/74
--- NOTE | 2018-07-28 10:00 | NUR ---
PATIENT IS AWAKE AND ALERT, PLEASANT AND SOCIALIZES WITH PEERS. CALM AND COOPERATIVE WITH CARE AND ASSESSMENT. MEDICATION COMPLIANT. FALL PRECAUTIONS IN PLACE. WILL CONTINUE PLAN OF CARE.
--- NOTE | 2018-07-28 11:00 | NUR ---
DISCHARGE PAPERWORK COMPLETED. LEFT VIA VAN FROM [facility].
--- NOTE | 2018-07-28 12:31 | NUR ---
Nutrition Follow Up: Chart reviewed. Pt is eating 89% meal avg on a regular diet. +BM 07/25/18. Meds and labs reviewed. RD following.
--- NOTE | 2018-07-28 15:50 | PN ---
PATIENT:ADRIAN WAGGOENR MEDICAL RECORD: [id number] LOCATION:[facility] ADMISSION DATE: 07/21/18 PROGRESS NOTE DATE OF SERVICE: 07/27/2018 SUBJECTIVE: The patient's case was discussed with staff. He has no new complaint. OBJECTIVE: The patient has had no sexually inappropriate behavior. He has been participating in treatment, tolerating his medicines well and has had no behavior problems or outbursts. ASSESSMENT: Senile dementia of the Alzheimer's type with behavioral disturbances. PLAN: I anticipate the patient can be transitioned out of the hospital tomorrow if this level of improvement is maintained. I am presuming that all the paperwork is in order for him to return to the [facility] and I think that is the case. Followup will be with his primary care physician. TRANSINT:[id number] Voice Confirmation ID: [id number] DOCUMENT ID: [id number] REBECCA MATTHEWS MD at 1550 CC: [id number] DICTATION DATE: 07/27/18 1549 NAIL CUTTER: 07/27/18 1822 ADM IN [facility] [address] [place] [address]
--- NOTE | 2018-07-29 14:03 | PN ---
PATIENT:ADRIAN WAGGONER MEDICAL RECORD: [id number] LOCATION:[facility] ADMISSION DATE: 07/21/18 PROGRESS NOTE DATE OF SERVICE: 07/28/2018 SUBJECTIVE: The patient's case was discussed with staff. He has no new complaint. OBJECTIVE: The patient denies intent to harm himself or others. He is in good behavioral control and has had no sexually inappropriate behavior. ASSESSMENT: Senile dementia of the Alzheimer's type with behavioral disturbances. PLAN: The patient is safe to be transitioned out of the hospital today. He will be returned to the [facility]. Follow up will be with the [facility] primary care physician. He has no evidence of acute or direct dangerousness to himself or others. TRANSINT:[id number] Voice Confirmation ID: [id number] DOCUMENT ID: [id number] REBECCA MATTHEWS MD at 1403 CC: [id number] DICTATION DATE: 07/28/18 1451 SCHOOL BASED THERAPIST: 07/28/18 1644 DIS IN 07/28/18 [facility] [address] [place] [address]
--- NOTE | 2018-07-30 14:19 | DS ---
PATIENT:ADRIAN WAGGONER :36 MEDICAL RECORD: [id number] DISCHARGE SUMMARY ADMISSION DATE: 07/21/18 DISCHARGE DATE: 07/28/18 IDENTIFYING DATA: The patient is 77 years old and he was admitted to the hospital on a voluntary basis. The patient was known to me from previous clinical contact and he had actually been a patient here in 2013. In 2013, he had been brought to the Emergency Room because he had attempted to kill himself. On this occasion, he is brought to the Emergency Room because the long-term staff indicate that he has been sexually inappropriate. He did have some recollection of this I think, but he was minimizing the situation, saying that he was just joking and then later he said he did not recall having frightened any women her other patients at the long-term. HOSPITAL COURSE: The patient has a history of dementia and is clearly impaired cognitively. He was treated with both mood stabilizing and memory enhancing medications and he did show improvement through the course of the hospitalization and did not have any further sexually inappropriate behaviors. It was felt that he had reached maximum hospital benefit on 07/28/2018 and he was subsequently transitioned back to the long-term. DISCHARGE DIAGNOSES: AXIS I: Senile dementia of the Alzheimer's type with behavioral disturbances. AXIS II: None. AXIS III: Hypertension. AXIS IV: Moderate. AXIS V: Global assessment of functioning is 45. PLAN: At the time of discharge, the patient was in good behavioral control with no thoughts of harming himself or others and no disruptive behaviors. Followup is to be with his primary care long-term physician. TRANSINT:[id number] Voice Confirmation ID: [id number] DOCUMENT ID: [id number] REBECCA MATTHEWS MD at 1419 CC: [id number] DICTATION DATE: 07/29/18 1406 [address] CHAUFFEUR: 07/30/18 1137 DIS IN 07/28/18 [place] [id number] [place] [address]
== END 2018-07-28 11:00 | DRG 57 ==
LOC: D.PSYCH 23:30
PROVIDERS: ADMIT Psychiatry & Neurology Psychiatry; ATTEND Psychiatry & Neurology Psychiatry
DX: G30.1 Alzheimer's disease with late onset (principal); F02.81 Dementia in other diseases classified elsewhere, unspecified severity, with behavioral disturbance; I10 Essential (primary) hypertension; R73.9 Hyperglycemia, unspecified; G47.00 Insomnia, unspecified; H04.129 Dry eye syndrome of unspecified lacrimal gland; F41.9 Anxiety disorder, unspecified; M19.90 Unspecified osteoarthritis, unspecified site; K59.09 Other constipation

== ENCOUNTER 2018-10-12 10:26 | Emergency (ER) | payer MEDICARE, MEDICAID ==
[~2018-10-12] VITALS: Ht 180.3 cm; Wt 93.6 kg
[~2018-10-12 10:26] MED LIST changes: +ARTIFICIAL TEAR15 M4 EACH EYE; +BUSPAR 15 MG TA15 MG PO; +BUSPAR5 MG PO; +CALCIUM CARBONATE PO; +DONEPEZIL HCL5 MG PO; +EX LAX PO; +FISH OIL 1,0001 CA1 PO; +IBUPROFIN PO; +MELATONIN 3 MG1 TAB PO; +MUSCLE RUB; +OMEPRAZOLE PO; +POLY-VI-SOL W/I50 ML PO; +SIMETHICONE PO; +TRAZADONE PO; +ULTRAM50 MG PO; +ZYPREXA5 MG PO
[2018-10-12 10:34] VITALS: Ht 180.3 cm; Wt 93.6 kg
[2018-10-12] MEDS ORDERED: BUSPAR5 MG PO ×2 (10:40)
[2018-10-12] MEDS ORDERED: TUMS X-STR300 MG PO (10:41)
[2018-10-12] MEDS ORDERED: ZYRTEC10 MG PO (10:42)
[2018-10-12] MEDS ORDERED: FOMAX (10:44)
[2018-10-12] MEDS ORDERED: EX-LAX15 MG PO (10:44)
[2018-10-12] MEDS ORDERED: MIRALAX17 GM PO (10:45)
[2018-10-12] MEDS ORDERED: IBUPROFEN400 MG PO (10:46)
[2018-10-12] MEDS ORDERED: PREPARATION H O57 GM RC (10:48)
[2018-10-12] MEDS ORDERED: ZYPREXA5 MG PO (10:50)
[2018-10-12 11:29] LABS: BASOPHILS 0.2 % (0-2); EOSINOPHILS 0.3 % (0-7); HEMATOCRIT 42.2 % (42.0-54.0); HEMOGLOBIN 15.1 g/dL (13.5-17.5); IMMATURE GRANULOCYTES 0.2 % (0-5); LYMPHOCYTES 15.1 % (15-50); MCH 32.7 pg (26.0-34.0); MCHC 35.8 g/dL (31.0-37.0); MCV 91.3 fL (80.0-100.0); MEAN PLATELET VOLUME 9.1 fL (7.4-10.4); MONOCYTES 6.9 % (2-11); NEUTROPHILS 77.3 % (40-80); PLATELET COUNT 219 10x3/uL (130-400); RBC 4.62 10x6/uL (4.20-6.10); RDW 15.5 % (11.5-14.5); WBC 12.4 10x3/uL (4.8-10.8)
[2018-10-12 11:41] LABS: APPEARANCE CLEAR (CLEAR); BILIRUBIN NEGATIVE (NEGATIVE); COLOR YELLOW (YELLOW); GLUCOSE NEGATIVE (NEGATIVE); KETONE MODERATE mg/dL (NEGATIVE); NITRITE NEGATIVE (NEGATIVE); PROTEIN NEGATIVE (NEGATIVE); SPECIFIC GRAVITY 1.015 (1.005-1.020); UROBILINOGEN NORMAL (NORMAL)
[2018-10-12 11:44] LABS: ALBUMIN 3.9 g/dL (3.4-5.0); ANION GAP 13.1 mmol/L (8-16); BILIRUBIN - TOTAL 0.51 mg/dL (0.2-1.3); CALCIUM 8.9 mg/dL (8.5-10.1); CARBON DIOXIDE 24.7 mmol/L (21.0-32.0); CREATININE - SERUM 1.2 mg/dL (0.6-1.3); POTASSIUM - SERUM 3.8 mmol/L (3.5-5.1); PROTEIN - SERUM 8.2 g/dL (6.4-8.2)
[2018-10-12 11:59] VITALS: BP 144/82
[2018-10-12] MEDS ORDERED: CELEBREX200 MG PO (12:21)
== END 2018-10-12 13:00 ==
LOC: D.ER 10:26
PROVIDERS: Emergency Medicine
DX: M47.896 Other spondylosis, lumbar region (principal); M19.012 Primary osteoarthritis, left shoulder

== ENCOUNTER 2020-09-06 18:02 | Emergency (ER) | payer MEDICARE, MEDICAID ==
[~2020-09-06] VITALS: Ht 180.3 cm; Wt 100.0 kg
[~2020-09-06 18:02] MED LIST changes: +CELEBREX200 MG PO; +EX-LAX15 MG PO; +FOMAX; +IBUPROFEN400 MG PO; +PREPARATION H O57 GM RC; +TUMS X-STR300 MG PO; +ZYRTEC10 MG PO
[2020-09-06 18:04] VITALS: Ht 180.3 cm; Wt 100.0 kg
[2020-09-06 19:42] LABS: EOSINOPHILS 1.6 % (0-7); HEMATOCRIT 42.7 % (42.0-54.0); HEMOGLOBIN 14.1 g/dL (13.5-17.5); LYMPHOCYTES 25.8 % (15-50); MCH 31.9 pg (26.0-34.0); MCHC 33.1 g/dL (31.0-37.0); MCV 96.1 fL (80.0-100.0); MEAN PLATELET VOLUME 7.4 fL (7.4-10.4); NEUTROPHILS 59.6 % (40-80); RBC 4.44 10x6/uL (4.20-6.10); RDW 15.9 % (11.5-14.5); WBC 8.1 10x3/uL (4.8-10.8)
[2020-09-06 19:47] LABS: CALC OSMOLALITY 281 mosm/kg (275-300); CALCIUM 8.8 mg/dL (8.5-10.1); CARBON DIOXIDE 23.4 mmol/L (21.0-32.0); CHLORIDE - SERUM 107 mmol/L (98-107); CREATININE - SERUM 1.1 mg/dL (0.6-1.3); GLUCOSE 104 mg/dL (74-106); POTASSIUM - SERUM 3.7 mmol/L (3.5-5.1); SODIUM 140 mmol/L (136-145); UREA NITROGEN 20 mg/dL (7-18); eGFR NON AFRICAN AMERICAN 68 mL/min (90-120)
[2020-09-06 19:54] LABS: PLATELET COUNT 272 10x3/uL (130-400)
[2020-09-06 20:04] LABS: ALBUMIN 3.6 g/dL (3.4-5.0); ALKALINE PHOSPHATASE 72 U/L (30-120); ALT (SGPT) 32 U/L (10-68); AMYLASE - SERUM 143 U/L (25-115); BILIRUBIN - TOTAL 0.24 mg/dL (0.2-1.3); CREATINE KINASE 229 UL (21-232); LIPASE 210 U/L (73-393); MAGNESIUM - SERUM 2.3 mg/dL (1.8-2.4); PROTEIN - SERUM 7.7 g/dL (6.4-8.2)
[2020-09-06 20:06] LABS: TROPONIN-I < 0.017 ng/mL (0.000-0.060)
[2020-09-06 21:09] VITALS: BP 164/94
== END 2020-09-06 21:09 ==
LOC: D.ER 18:02
PROVIDERS: Family Medicine
DX: K20.90 Esophagitis, unspecified without bleeding (principal); R07.9 Chest pain, unspecified; K21.9 Gastro-esophageal reflux disease without esophagitis; I10 Essential (primary) hypertension